=== PATIENT | male | born 1960 | race Caucasian/White ===

== ENCOUNTER → 2021-12-31 | Day surgery (SDC) | payer OTHER ==
[~2021-12-31] VITALS: Ht 172.7 cm; Wt 104.3 kg
[~2021-12-31] MED LIST: ATOR10TA PO; BUPIVACAINE HCL/PF 0.5% (5MG/ML) 10ML ONE; EMPA25TA PO; FENTANYL CITRATE/PF 50MCG/ML 2ML VIAL ONE; HYDROMORPHONE HCL/PF 2MG/ML CPJ IV PRN; METF-414 PO; ONDANSETRON HCL 4MG/2ML INJ IV PRN; PHENYLEPHRINE HCL 10 MG/ML 1ML (IV VIAL) IV ONE; PROPOFOL 200MG/20ML VIAL IV ONE; ROCURONIUM BROMIDE 10MG/ML VIAL 5ML IV ONE; SKIN ADHESIVE 0.7 GM EA TOP ONE; SODIUM CHLORIDE 0.9% 1,000 ML IV SCH; SUCCINYLCHOLINE CHLORIDE 200MG/10ML IV ONE
[2021-12-31 10:10] VITALS: BP 127/84
== END | disposition home or self-care (01) ==
LOC: EDBD 12-29 09:00 → OR 05:22 → EDBD 07:30
PROVIDERS: ATTEND Surgery
DX: K43.9 Ventral hernia without obstruction or gangrene (principal); E11.9 Type 2 diabetes mellitus without complications; E78.00 Pure hypercholesterolemia, unspecified; Z79.84 Long term (current) use of oral hypoglycemic drugs; Z79.899 Other long term (current) drug therapy; Z98.890 Other specified postprocedural states; Z20.822 Contact with and (suspected) exposure to COVID-19
CPT/HCPCS: 49560; 49568; 82962; 87426; C1781; C9803; J0330; J1170; J2370; J2704; J3010; J3490